=== PATIENT | female | born 1985 | race Caucasian/White ===

== ENCOUNTER 2020-09-02 15:24 | Emergency (ER) | payer OTHER, SELFPAY ==
--- NOTE | ~2020-09-02 | US_ITS ---
EXAMINATION: US pelvic complete w TV EXAM DATE: 09/02/2020 18:48 INDICATION: Left-sided ovarian pain. Clinical concern for torsion. Symptoms since Saturday. TECHNIQUE: Pelvic transabdominal and transvaginal sonogram was performed. There are multiple graysca le and Doppler images available for interpretation. There is no prior study for comparison. FINDINGS: Uterus measures 7.0 x 2.8 x 4.0 cm, and is morphologically normal. Endometrial stripe nilson sures 4 mm, within normal limits. There is no free pelvic fluid. Right adnexa: The ovary measures 3.1 x 1.6 x 1.7 cm and is morphologically normal. Ovarian vascular f low confirmed. Left adnexa: The ovary measures 3.2 x 1.4 x 1.7 cm and is morphologically normal. Ovarian vascular fl ow confirmed. IMPRESSION: 1. Unremarkable pelvic ultrasound exam. Reviewed, dictated and finalized at location A. PICK UP DRIVER
[2020-09-02 15:40] VITALS: BP 121/62; PULSE 71; RESP 18; TEMP 36.3; O2SAT 100
[2020-09-02 16:11] LABS: Basophils Absolute Auto 0.1 K/mm3 (0.0-0.1); Basophils Percent Auto 0.7 % (0.2-1.2); Eosinophils Absolute Auto 0.4 K/mm3 (0-0.3); Eosinophils Percent Auto 4.6 % (0-4.4); Hematocrit 38.8 % (37.0-47.0); Hemoglobin 13.1 g/dL (12.0-15.0); Immature Granulocyte Absolute 0.02 K/mm3 (0.00-0.031); Immature Granulocyte Percent A 0.2 % (0-0.5); Lymphocytes Absolute Auto 2.94 K/mm3 (0.9-3.2); Lymphocytes Percent Auto 34.3 % (18.3-44.2); Mean Corpuscular HGB Conc 33.8 g/dl (32-36); Mean Corpuscular Hemoglobin 30.9 pg (26-34); Mean Corpuscular Volume 91.5 fl (80-100); Mean Platelet Volume 9.4 fl (7.4-10.4); Monocytes Absolute Auto 0.5 K/mm3 (0.1-0.6); Monocytes Percent Auto 6.2 % (2.6-8.5); Neutrophils Absolute Auto 4.6 K/mm3 (1.3-6.7); Platelet Count Result 319 k/mm3 (150-375); Red Blood Count 4.24 M/mm3 (4.2-5.4); Red Cell Distribution Width 12.4 % (11.5-14.5); White Blood Count 8.6 K/mm3 (4.5-10.0)
[2020-09-02 16:22] LABS: Alanine Aminotransferase 16 U/L (4-35); Albumin Level 4.2 g/dL (3.5-5.1); Alkaline Phosphatase 40 U/L (38-126); Anion Gap 8 mmol/L (8-16); Aspartate Amino Transferase 22 U/L (14-36); Bilirubin,Total 0.3 mg/dL (0.2-1.3); Blood Urea Nitrogen 16 mg/dL (7-17); Carbon Dioxide 31 mmol/L (22-30); Chloride 100 mmol/L (98-107); Estimated CRCL calculation 102 ml/min; Estimated Glomerular Filt Rate > 60; Glucose 92 mg/dL (65-105); Lipase 55 U/L (23-300); Potassium 4.1 mmol/L (3.4-5.0); Sodium 139 mmol/L (137-145)
[2020-09-02 16:31] LABS: Add Urine Microscopic? NO; Appearance Urine Clear (Clear); Bilirubin Urine Negative (Negative); Blood Urine Negative (Negative); Color Urine Yellow (Yellow); Glucose Urine UA Negative (Negative); Ketones Urine Negative (Negative); Leukocyte Esterase Ur Negative LEU/UL (Negative); Nitrate Urine Negative (Negative); Protein Urine Negative (Negative); Specific Grav Ur 1.016 (1.001-1.035); Urobilinogen Urine Negative mg/dL (<2.0)
--- NOTE | 2020-09-02 18:22 | ED.ABDPAIN ---
HPI - Abdominal Pain General Chief Complaint: Abdominal Pain Stated Complaint: abd pain/left Time Seen by Provider: 09/02/20 16:53 Source: patient Mode of arrival: ambulatory Limitations: no limitations History of Present Illness HPI narrative: A 35-year-old female [facility] with complaints of left lower quadrant abdominal pain. Patient states that she feels it down low in her pelvis. She notes that she has had a history of ovarian cyst in the past. Patient states that she used to take Clomid for fertility reasons. She states that the pain felt similar to ovulation pain. She states that now that she is in the room and lying down that the pain has gone down from a 10 out of 10 to a 2-3 out of 10. Related Data Home Medications Medication Instructions Recorded Confirmed sertraline 50 mg PO DAILY 06/05/19 06/17/19 Allergies Allergy/AdvReac Type Severity Reaction Status Date / Time escitalopram [From Lexapro] Allergy Severe Hives Verified 09/02/20 17:16 Sulfa (Sulfonamide Allergy Severe Seizure Verified 09/02/20 17:16 Antibiotics) azithromycin Allergy Mild Rash Verified 09/02/20 17:16 Review of Systems Review of Systems: Narrative: CONSTITUTIONAL: Denies fever, chills, or sweats. EYES: Denies visual changes, redness, or discharge. ENT: Denies rhinorrhea, congestion, sore throat, or otalgia. CARDIOVASCULAR: Denies chest pain, palpitations, or edema. RESPIRATORY: Denies cough or dyspnea. GASTROINTESTINAL: Denies abdominal pain, nausea, vomiting, or diarrhea. GENITOURINARY: Denies dysuria or hematuria. SKIN: Denies rash or itching. MUSCULOSKELETAL: Denies back pain, joint pain, or myalgia. NEUROLOGIC: Denies headache, numbness, dizziness, or weakness. PSYCHIATRIC: Denies anxiety or depression. [facility] Past Medical History Medical History (Updated 09/02/20 @ 19:22 by Taz Ingram DO) Anxiety Depression Obesity (BMI 30-39.9) Social History Social History Gender identity (if verbalized by the patient): Male Exam Narrative: Exam Narrative: GENERAL: Well-appearing, well-nourished, and in no acute distress. HEAD: Normocephalic, atraumatic. EYES: PERRLA and EOMI. ENT: Nares clear, no rhinorrhea or epistaxis. Mucous membranes moist. NECK: Supple. No adenopathy or masses. No carotid bruits or JVD CHEST: Clear to auscultation. No respiratory distress. No wheezes rales or rhonchi HEART: Regular rate and rhythm. No murmur heard. Normal peripheral pulses. ABDOMEN: Soft, nontender, nondistended, normal active bowel sounds. Tenderness to palpation in the left lower quadrant just lateral to her scar EXTREMITIES: Normal range of motion. No edema. SKIN: Warm, dry, no rash. NEURO: No focal deficits. Alert and oriented x3. PSYCH: Normal mood and affect. Course Reevaluation(s) Reevaluation #1: Patient resting comfortably at this time. She is feeling much better. Explained to her the results of her ultrasound and work-up. Patient likely had a ruptured ovarian cyst. 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 Time: 19:20 Vital Signs Vital signs: Vital Signs Temperature 36.3 C L 09/02/20 15:40 Pulse Rate 71 09/02/20 15:40 Respiratory Rate 18 09/02/20 15:40 Blood Pressure 121/62 09/02/20 15:40 Pulse Oximetry 100 09/02/20 15:40 Temperature 36.3 C L 09/02/20 15:40 Pulse Rate 71 09/02/20 15:40 Respiratory Rate 18 09/02/20 15:40 Blood Pressure 121/62 09/02/20 15:40 Pulse Oximetry 100 09/02/20 15:40 MDM - Abdominal Pain MDM Narrative Medical decision making narrative: In brief this 35-year-old female came into the emergency department with complaints of left lower quadrant pelvic pain. Patient has had a history of ovarian cyst. As severe as her pain was on presentation I was concerned for possible ovarian torsion. Ultrasound was called in, ultrasou
[2020-09-02 19:30] VITALS: BP 117/92; PULSE 59; RESP 12; O2SAT 97
== END 2020-09-02 19:30 | disposition home or self-care (01) ==
PROVIDERS: Emergency Medicine; Emergency Provider Emergency Medicine
DX: N83.202 Unspecified ovarian cyst, left side (principal); F41.9 Anxiety disorder, unspecified; F32.9 Major depressive disorder, single episode, unspecified; E66.9 Obesity, unspecified; Z68.28 Body mass index [BMI] 28.0-28.9, adult
CPT/HCPCS: 36415; 76830; 76856; 80053; 81003; 81025; 83690; 85025; 99284

== ENCOUNTER 2024-02-18 14:50 | Outpatient (CLI) | payer OTHER, SELFPAY ==
--- NOTE | ~2024-02-18 | MM_ITS ---
EXAMINATION: MM screening rocco BI w alicia HISTORY: Screening TECHNIQUE: Craniocaudal and mediolateral oblique 3-D tomosynthesis images were obtained and synthetic 2-D images were generated. CAD analysis was submitted and interpreted. COMPARISON: No prior mammogram is available for comparison at this institution. BREAST PARENCHYMAL COMPOSITION: Dense: The breasts are heterogeneously dense, which may obscure small masses FINDINGS: There are bilateral irregular asymmetries in the upper outer quadrant of both breasts. Ther e are no suspicious calcifications. No discrete masses. IMPRESSION: 1. Bilateral breast asymmetries. 2. Additional mammographic views and possible breast ultrasound are recommended. BI-RADS Category 0: Incomplete: Needs additional imaging evaluation. Reviewed, dictated and finalized at location B. IMPRESSION: 1. Bilateral breast asymmetries. 2. Additional mammographic views and possible breast ultrasound are recommended . BI-RADS Category 0: Incomplete: Needs additional imaging evaluation.
== END 2024-02-18 14:51 ==
LOC: MICIMG 14:50
PROVIDERS: Visit Provider Obstetrics & Gynecology
DX: Z12.31 Encounter for screening mammogram for malignant neoplasm of breast (principal); R92.8 Other abnormal and inconclusive findings on diagnostic imaging of breast
CPT/HCPCS: 77063; 77067

== ENCOUNTER 2024-03-18 09:10 | Outpatient (CLI) | payer OTHER, SELFPAY ==
--- NOTE | ~2024-03-18 | MMUS_ITS ---
EXAMINATION: MM diagnostic rocco BI w alicia, US breast BI limited HISTORY: Follow-up breast asymmetries TECHNIQUE: Additional 3-D tomosynthesis images of the breasts were performed and synthetic 2-D images were generated. CAD analysis was submitted and interpreted. High resolution limited bilateral breast ultrasound was performed. COMPARISON: 02/18/2024 BREAST PARENCHYMAL COMPOSITION: Dense: The breasts are heterogeneously dense, which may obscure small masses FINDINGS: MAMMOGRAPHIC FINDINGS: There are no suspicious masses, calcifications or architectural distortion in either breast to sugges t malignancy. ULTRASOUND: Limited bilateral breast ultrasound: Heterogeneous echotexture without focal solid or cystic mass. IMPRESSION: 1. No evidence for malignancy in either breast. 2. Routine yearly screening mammogram and regular clinical breast examination are recommended. BI-RADS Category 1: Negative Reviewed, dictated and finalized at location B. IMPRESSION: 1. No evidence for malignancy in either breast. 2. Routine yearly screening mammogram and regular clinical breast examination a re recommended. BI-RADS Category 1: Negative
== END 2024-03-18 09:11 | disposition home or self-care (01) ==
LOC: MICIMG 09:11
PROVIDERS: Visit Provider Obstetrics & Gynecology
DX: R92.8 Other abnormal and inconclusive findings on diagnostic imaging of breast (principal)
CPT/HCPCS: 76642; 77062; 77066; G0279

== ENCOUNTER 2025-06-07 13:36 | Outpatient (CLI) | payer OTHER, SELFPAY ==
--- NOTE | ~2025-06-07 | MM_ITS ---
EXAMINATION: MM screening rocco BI w alicia HISTORY: Screening TECHNIQUE: Craniocaudal and mediolateral oblique 3-D tomosynthesis images were obtained and synthetic 2-D images were generated. CAD analysis was submitted and interpreted. COMPARISON: Comparison to multiple prior studies sequentially, with oldest reviewed study dated 02/18/2024. BREAST PARENCHYMAL COMPOSITION: Dense: The breasts are heterogeneously dense, which may obscure small masses FINDINGS: There is no evidence of suspicious mass, calcification, or architectural distortion to suggest malignancy in either breast. There has been no suspicious interval change. IMPRESSION: 1. No mammographic evidence of malignancy. 2. Recommend routine screening mammography in one year. BI-RADS Category 1: Negative Reviewed, dictated and finalized at location O. ROGRAPHER
== END 2025-06-07 13:37 | disposition home or self-care (01) ==
LOC: MICIMG 13:39
PROVIDERS: PCP Family Medicine; Visit Provider Obstetrics & Gynecology
DX: Z12.31 Encounter for screening mammogram for malignant neoplasm of breast (principal)
CPT/HCPCS: 77063; 77067